=== PATIENT | male | born 1975 | race Hispanic/Latino ===

== ENCOUNTER 2017-08-22 19:12 | Emergency (ER) | payer BC ==
[2017-08-22] MEDS ORDERED: DOXYCYCLINE HYCLATE 100 MG TABLET PO ONE (19:55)
[2017-08-22] MEDS ORDERED: TETANUS/DIPHTHERIA TOXOID [ADULT] 0.5 ML VIAL IM ONE (19:56)
[2017-08-22] MEDS ORDERED: LEVOFLOXACIN 500 MG TABLET ONE (19:56)
[2017-08-22] MEDS ORDERED: IBUPROFEN 600 MG TABLET ONE (19:57)
== END 2017-08-22 20:51 | disposition home or self-care (01) ==
LOC: EDH 19:12
DX: S61.031A Puncture wound without foreign body of right thumb without damage to nail, initial encounter (principal); W26.8XXA Contact with other sharp object(s), not elsewhere classified, initial encounter; Y93.89 Activity, other specified; Y92.89 Other specified places as the place of occurrence of the external cause; Y99.8 Other external cause status
CPT/HCPCS: 73140; 90471; 90714

== ENCOUNTER 2018-07-09 10:45 | Emergency (ER) | payer BC, OTHER ==
[2018-07-09] MEDS ORDERED: DOXYCYCLINE HYCLATE 100 MG TABLET PO ONE (11:40)
== END 2018-07-09 11:46 | disposition home or self-care (01) ==
LOC: EDH 10:45
DX: S70.361A Insect bite (nonvenomous), right thigh, initial encounter (principal); L03.115 Cellulitis of right lower limb; Z87.891 Personal history of nicotine dependence; W57.XXXA Bitten or stung by nonvenomous insect and other nonvenomous arthropods, initial encounter; Y93.89 Activity, other specified; Y92.89 Other specified places as the place of occurrence of the external cause; Y99.8 Other external cause status

== ENCOUNTER 2019-11-13 09:24 | Emergency (ER) | payer OTHER | END 2019-11-13 10:50 | disposition home or self-care (01) | LOC: EDH 09:24 | DX: S70.11XA Contusion of right thigh, initial encounter (principal); S00.93XA Contusion of unspecified part of head, initial encounter; R03.0 Elevated blood-pressure reading, without diagnosis of hypertension; Y08.89XA Assault by other specified means, initial encounter; Y93.89 Activity, other specified; Y92.89 Other specified places as the place of occurrence of the external cause; Y99.8 Other external cause status | CPT/HCPCS: 73552 ==

== ENCOUNTER 2023-11-02 13:56 | Inpatient (IN) | payer BC ==
[~2023-11-02] VITALS: Ht 177.8 cm; Wt 95.3 kg
[2023-11-02 14:17] LABS: BASOPHILS # (AUTO) 0.06 K/uL (0.00-0.20); BASOPHILS % (AUTO) 0.8 % (0.0-5.0); EOSINOPHILS % (AUTO) 3.8 % (0.0-8.0); HEMATOCRIT 45.9 % (42-54); IMMATURE GRANULOCYTE ABSOLUTE 0.04 K/uL (0-1); LYMPHOCYTES # (AUTO) 1.9 K/uL (1.0-4.8); LYMPHOCYTES % (AUTO) 23.6 % (21.0-51.0); MEAN CORPUSCULAR HEMOGLOBIN 28.3 pg (27.0-33.0); MEAN CORPUSCULAR HGB CONC 34.2 g/dL (32.0-36.0); MEAN CORPUSCULAR VOLUME 82.9 fL (79-99); MONOCYTES # (AUTO) 0.7 K/uL (0.1-1.0); NEUTROPHILS # (AUTO) 4.9 K/uL (1.8-7.7); NEUTROPHILS % (AUTO) 62.3 % (40.0-77.0); PLATELET COUNT (AUTO) 250 K/uL (130-400); RED BLOOD CELL COUNT(AUTO) 5.54 MIL/uL (4.50-6.20); RED CELL DISTRIBUTION WIDTH 13.2 % (11.0-15.5); WHITE BLOOD COUNT (AUTO) 7.9 K/uL (4.8-10.8)
[2023-11-02 14:21] LABS: CREATININE 0.9 mg/dL (0.5-1.3); POTASSIUM 3.3 mmol/L (3.5-5.1)
[2023-11-02 14:23] LABS: INR 1.05 (0.85-1.15); PROTHROMBIN TIME 11.3 SEC (9.6-11.6)
[2023-11-02 14:24] LABS: PARTIAL THROMBOPLASTIN TIME 27.6 SEC (26.3-35.5)
[2023-11-02] MEDS: ASPIRIN 81MG CHEW TAB PO ONE (14:37)
[2023-11-02] MEDS: ONDANSETRON 4MG INJ IVP ONE (14:37)
[2023-11-02 14:38] LABS: B-TYPE NATRIURETIC PEPTIDE 14 pg/mL (0-100)
[2023-11-02] MEDS: morPHINE 4 MG SYG IVP ONE (14:39)
[2023-11-02] MEDS: NITROGLYCERIN 0.4 MG SL TAB SL PRN (14:39)
[2023-11-02] MEDS: LORazepam 0.5 MG TABLET PO ONE (17:57)
[2023-11-02] MEDS: PANTOPRAZOLE 40 MG TAB DR PO ONE (17:57)
[2023-11-02] MEDS: HEParin 25,000 UNITS/250ML D5W 250 ML IV PRN (18:07)
[2023-11-02] MEDS: HEParin 5,000 UNIT VIAL IV ONE ×2 (18:15→18:16)
[2023-11-02] MEDS ORDERED: ONDANSETRON 4MG INJ IV PRN (20:00)
[2023-11-02] MEDS ORDERED: NITROGLYCERIN 0.4 MG SL TAB SL PRN (20:00)
[2023-11-02] MEDS ORDERED: MAGNESIUM 2GM PREMIX 50ML 50 ML IV PRN (21:00)
[2023-11-02] MEDS ORDERED: POTASSIUM CHLORIDE 10% ELIXIR 20 MEQ/15 ML UDCUP PO PRN (21:00)
[2023-11-02] MEDS ORDERED: POTASSIUM CHLORIDE 20MEQ/100ML 100 ML IV PRN (21:00)
[2023-11-02 22:35] VITALS: BP 125/71; PULSE 66; RESP 20; TEMP 98
[2023-11-02] MEDS: FAMOTIDINE 20MG VIAL IV SCH (23:07)
[2023-11-02] MEDS: 0.9%NACL 1000ML 1,000 ML IV SCH (23:08)
[2023-11-03 03:53] LABS: BASOPHILS # (AUTO) 0.07 K/uL (0.00-0.20); BASOPHILS % (AUTO) 1.1 % (0.0-5.0); EOSINOPHILS # (AUTO) 0.34 K/uL (0.00-0.70); EOSINOPHILS % (AUTO) 5.1 % (0.0-8.0); HEMATOCRIT 45.1 % (42-54); IMMATURE GRANULOCYTE ABSOLUTE 0.03 K/uL (0-1); LYMPHOCYTES # (AUTO) 2.2 K/uL (1.0-4.8); LYMPHOCYTES % (AUTO) 33.8 % (21.0-51.0); MEAN CORPUSCULAR HEMOGLOBIN 28.4 pg (27.0-33.0); MEAN CORPUSCULAR HGB CONC 33.5 g/dL (32.0-36.0); MEAN CORPUSCULAR VOLUME 84.9 fL (79-99); MONOCYTES # (AUTO) 0.8 K/uL (0.1-1.0); MONOCYTES % (AUTO) 11.9 % (3.0-13.0); NEUTROPHILS # (AUTO) 3.2 K/uL (1.8-7.7); NEUTROPHILS % (AUTO) 47.6 % (40.0-77.0); PLATELET COUNT (AUTO) 239 K/uL (130-400); RED BLOOD CELL COUNT(AUTO) 5.31 MIL/uL (4.50-6.20); RED CELL DISTRIBUTION WIDTH 13.3 % (11.0-15.5); WHITE BLOOD COUNT (AUTO) 6.6 K/uL (4.8-10.8)
[2023-11-03 04:00] VITALS: BP 101/70; PULSE 57; RESP 20; TEMP 97.8
[2023-11-03 04:02] LABS: HEMOGLOBIN A1C 5.1 % (4.0-6.0)
[2023-11-03 04:18] LABS: BILIRUBIN,TOTAL 0.4 mg/dL (0.2-1.0); POTASSIUM 3.8 mmol/L (3.5-5.1); THYROID STIMULATING HORMONE 0.91 uIU/mL (0.36-3.74); TOTAL PROTEIN, SERUM 5.7 g/dL (6.0-8.3)
[2023-11-03] MEDS: acetaMINOPHEN 500 MG TABLET PO PRN (06:18)
[2023-11-03 08:00] VITALS: BP 138/74; PULSE 63; RESP 20; TEMP 98.2
[2023-11-03] MEDS: ASPIRIN 81 MG EC TAB PO SCH (08:37)
[2023-11-03 12:01] VITALS: BP 116/74; PULSE 56; RESP 18; TEMP 98.4
[2023-11-03 16:00] VITALS: BP 144/80; PULSE 68; RESP 18; TEMP 98.8
[2023-11-03 19:00] VITALS: BP 159/89; PULSE 68; RESP 20; TEMP 98.1
[2023-11-03 20:30] VITALS: O2SAT 100
[2023-11-03] MEDS: KCL 20 MEQ ERTAB PO PRN (20:34)
[2023-11-04] VITALS: BP 144/84; PULSE 68; RESP 20; TEMP 98
[2023-11-04 04:00] VITALS: BP 123/73; PULSE 70; RESP 20; TEMP 98.1
[2023-11-04 07:00] VITALS: BP 151/92; PULSE 61; RESP 20; TEMP 98.1
[2023-11-04 08:00] VITALS: O2SAT 100
[2023-11-04] MEDS: REGADENOSON 0.4 MG/5 ML PF SYG IVP SCH (12:53)
[2023-11-04 13:31] VITALS: BP 159/88; PULSE 58; RESP 18; TEMP 98
[2023-11-04 15:00] VITALS: BP 152/90; PULSE 71; RESP 20; TEMP 98.4
[2023-11-04] MEDS ORDERED: AEC81 PO (16:40)
[2023-11-04] MEDS ORDERED: AMLO5TAB4 PO (16:42)
== END 2023-11-04 18:20 | disposition home or self-care (01) | DRG 313 ==
LOC: EDH 13:56 → EDHIP 13:57 → 4AH 22:28
PROVIDERS: ADMIT Internal Medicine; ATTEND Internal Medicine
PROC: 4A02XM4 Measurement of Cardiac Total Activity, External Approach (ICD-10-PCS; principal; 2023-11-04)
DX: R07.89 Other chest pain (principal); E87.6 Hypokalemia; F19.10 Other psychoactive substance abuse, uncomplicated; I10 Essential (primary) hypertension; E66.9 Obesity, unspecified; I25.10 Atherosclerotic heart disease of native coronary artery without angina pectoris; F17.200 Nicotine dependence, unspecified, uncomplicated; F12.10 Cannabis abuse, uncomplicated; F14.10 Cocaine abuse, uncomplicated; Z82.49 Family history of ischemic heart disease and other diseases of the circulatory system
CPT/HCPCS: 36415; 71045; 78452; 80048; 80053; 80061; 82550; 83036; 83735; 83880; 84443; 84484; 85025; 85610; 85651; 85730; 93005; 93017; 93306; 93356; 96374; 96375; A9500; G0378; J1644; J2270; J2405; J2785; J3490

== ENCOUNTER 2025-01-11 06:44 | Inpatient (IN) | payer BC, OTHER ==
[~2025-01-11] VITALS: Ht 188 cm; Wt 118.8 kg
[~2025-01-11 06:44] MED LIST: AEC81 PO; AMLO5TAB4 PO
[2025-01-11 07:08] LABS: IMMATURE GRANULOCYTE ABSOLUTE 0.05 K/uL (0-1); NUCLEATED RED BLOOD CELLS 0.0 % (0.0-0.19); PLATELET COUNT (AUTO) 297 K/uL (130-400); RED BLOOD CELL COUNT(AUTO) 5.51 MIL/uL (4.50-6.20); RED CELL DISTRIBUTION WIDTH 13.2 % (11.0-15.5); WHITE BLOOD COUNT (AUTO) 10.0 K/uL (4.8-10.8)
[2025-01-11 07:12] LABS: APPEARANCE,URINE CLEAR (CLEAR); GLUCOSE, URINE (UA) NEGATIVE (NEGATIVE); LEUKOCYTE ESTERASE ,URINE NEGATIVE Leu/uL (NEGATIVE); NITRATE,URINE NEGATIVE (NEGATIVE); OCCULT BLOOD,URINE NEGATIVE (NEGATIVE)
[2025-01-11 07:21] LABS: ADD UA MICROSCOPIC YES
[2025-01-11] MEDS: ASPIRIN 325MG EC TAB PO ONE (07:23)
[2025-01-11 07:25] LABS: SQUAMOUS EPITHELIAL CELL,UR RARE /HPF (0-2)
--- NOTE | 2025-01-11 07:32 | ERN ---
General Chief Complaint: Chest Pain Stated Complaint: CP Time Seen by MD: 07:17 Source: patient History of Present Illness Initial Comments Patient is a 49-year-old male coming in complaining of chest pain. Patient states that his chest pain presented last night stabbing presentation 5/10 intensity. He states he has not followed up with a aed trainer. He was evaluated a year ago for the similar presentation was told he had an enlarged heart with a leaky valve. Allergies: Uncoded Allergies: nkda (Allergy, Unknown, 07/09/18) Home Meds Active Scripts Amlodipine Besylate (Norvasc 5Mg Tab) 5 Mg Tablet, 5 MG PO DAILY for 30 Days, #30 TAB [facility] Aspirin (ASPIRIN 81 MG ECTAB) 81 Mg Ectab, 81 MG PO DAILY for 30 Days, #30 TAB.EC Prov:[facility] 11/04/23 Past Medical History Past Medical History: Hypertension Past Surgical History: None Family History Family History: CAD Social History Social History: Smokers, Drugs, ETOH ROS Dictation CONSTITUTIONAL: No chills, no fever, no weakness, no diaphoresis, no malaise. HEAD/FACE: No signs of trauma. EENT: No eye pain, no blurred vision, no tearing, no double vision, no ear pain, no ear discharge, no nose pain, no nasal congestion, no throat pain, no throat swelling, no mouth pain. RESPIRATORY: No cough, no orthopnea, no SOB, no stridor, no wheezing. CARDIOVASCULAR: chest pain, no edema, no palpitations, no syncope. GASTROINTESTINAL/ABDOMINAL: No abdominal pain, no constipation, no diarrhea, no nausea, no vomiting. GENITOURINARY: No abnormal discharge, no dysuria, no frequent urination, no hematuria. No complaints of pain in the genitals. MUSCULOSKELETAL: No back pain, no gout, no joint pain, no joint swelling, no muscle pain, no muscle stiffness, no neck pain. INTEGUMENTARY: No change in color, no change in hair/nails, no dryness, no lesion, no lumps, no rash. NEUROLOGICAL/PSYCH: No anxiety, not depressed, no emotional problem, no headache, no numbness, no pre-existing deficit, no history of seizures, no tremors, no weakness. HEMATOLOGIC/LYMPHATIC: Not anemic, no history of blood clots, no apparent bleeding, no bruising, glands not swollen. All Systems Negative, Except as Noted. Physical Exam Physical Exam Dictation VITAL SIGNS: Reviewed. GENERAL APPEARANCE: Alert, oriented x3, no acute distress, obese. HEAD AND FACE: Non-traumatic. EYES: PERRL, pink conjunctivas, eyelid no trauma, anterior chamber clear. EARS: Pinnas intact and no signs of trauma or erythema. Ear canals clear and no discharge. TMs no erythema. NOSE: No discharge, no bleeding. OROPHARYNX: Mouth normal, teeth no caries, tongue pink. Pharynx clear, no eryt lolly. Tonsils no exudates, no abscesses noted. Mucous membrane moist. NECK: Supple, non-tender, no thyromegaly, no masses, no JVD, no bruits. BREAST: Deferred. CHEST: No tenderness, no crepitus, no paradoxical movement, no retractions. LUNGS: Clear, well-ventilated, symmetric, no rales, no wheezing, no rhonchi, no stridor, good breath sounds bilaterally. HEART: Regular rate, regular rhythm, no murmur, no gallops. VASCULAR: No peripheral edema. ABDOMEN: Soft, positive bowel sounds, nondistended, no guarding, nontender, no rebound, no masses no hepatomegaly, no splenomegaly, no Yeager's sign, no hernias. RECTAL: Deferred. GENITAL: Deferred. NEUROLOGICAL: Normal speech, gross motor function intact, gross sensory function intact. MUSCULOSKELETAL: Neck nontender, full range of motion, back nontender, full range of motion. EXTREMITIES: Nontender, full range of motion. SKIN: Color pink, dry, no turgor, no rash, no lacerations, no abrasions, no contusions. LYMPHATICS: Deferred. Results Laboratory and Microbiology Lab and Micro Result Laboratory Tests Test 01/11/25 06:57 01/11/25 07:44 White Blood Count 10.0 K/uL (4.8-10.8) Red Blood Count 5.51 MIL/uL (4.50-6.20) Hemoglobin 15.4 g/dL (14.0-18.0) Hematocrit 45.2 % (42-54) Mean Corpuscular Volume 82.0 fL (79-99) Mean Corpuscular Hemoglobin 27.9 pg (27.0-33.0) Mean Corpuscular Hemoglobin Concent 34.1 g/dL (32.0-36.0) Red Cell Distribution Width 13.2 % (11.0-15.5) Platelet Count 297 K/uL (130-400) Mean Platelet Volume 9.4 fL (7.5-10.5) Immature Granulocyte % (Auto) 0.5 % (0-1) Neutrophils (%) (Auto) 75.7 % (40.0-77.0) Lymphocytes (%) (Auto) 13.0 % (21.0-51.0) L Monocytes (%) (Auto) 9.2 % (3.0-13.0) Eosinophils (%) (Auto) 0.8 % (0.0-8.0) Basophils (%) (Auto) 0.8 % (0.0-5.0) Neutrophils # (Auto) 7.5 K/uL (1.8-7.7) Lymphocytes # (Auto) 1.3 K/uL (1.0-4.8) Monocytes # (Auto) 0.9 K/uL (0.1-1.0) Eosinophils # (Auto) 0.08 K/uL (0.00-0.70) Basophils # (Auto) 0.08 K/uL (0.00-0.20) Absolute Immature Granulocyte (auto 0.05 K/uL (0-1) Nucleated Red Blood Cells 0.0 % (0.0-0.19) Urine Color YELLOW (YELLOW) Urine Appearance CLEAR (CLEAR) Urine pH 5.5 (5.0-8.0) Urine Specific [place] 1.039 (1.001-1.031) Urine Protein 30 mg/dL (NEGATIVE) H Urine Glucose (UA) NEGATIVE mg/dL (NEGATIVE) Urine Ketones 10 mg/dL (NEGATIVE) H Urine Occult Blood NEGATIVE (NEGATIVE) Urine Nitrate NEGATIVE (NEGATIVE) Urine Bilirubin NEGATIVE mg/dL (NEGATIVE) Urine Urobilinogen 2.0 mg/dL (0.2-1.0) H Urine Leukocyte Esterase NEGATIVE Vane/uL Urine RBC 2-5 /HPF (0-1) H Urine WBC 2-5 /HPF (0-1) H Urine Squamous Epithelial Cells RARE /HPF (0-2) Urine Bacteria None /HPF (None Seen) Sodium Level 137 mmol/L (136-145) Potassium Level 3.5 mmol/L (3.5-5.1) Chloride Level 101 mmol/L (101-111) Carbon Dioxide Level 24 mmol/L (21-32) Blood Urea Nitrogen 15 mg/dL (7-18) Creatinine 0.9 mg/dL (0.5-1.3) Glomerular Filtration Rate Calc 105 mL/min (>90) Random Glucose 126 mg/dL (70-105) H Total Calcium 9.5 mg/dL (8.5-10.1) Total Creatine Kinase 496 U/L (21-232) #*H Troponin I High Sensitivity 13 ng/L (4-75) 12 ng/L (4-75) Urine Opiates Screen NEGATIVE (NEGATIVE) Urine Barbiturates Screen NEGATIVE (NEGATIVE) Urine Phencyclidine Screen NEGATIVE (NEGATIVE) Urine Amphetamines Screen NEGATIVE (NEGATIVE) Urine Benzodiazepines Screen NEGATIVE (NEGATIVE) Urine Cocaine Screen POSITIVE (NEGATIVE) H Urine Marijuana (THC) Screen POSITIVE (NEGATIVE) H Labs Reviewed?: Yes EKG/XRAY/US/CT/MRI EKG Comment 01/11/2025 time 6:39 a.m. Ventricular rate 104 Sinus tachycardia [place] [address] wave elevation or depression MDM MDM: Differential diagnosis: Chest pain, cocaine abuse, history of valvular disease, history of enlarged heart, Rationale: Tests considered and ordered secondary to shared decision making include: labs, ECG and radiology Previous outside records reviewed: Old ER visits. Risk of complication and/or morbidity or mortality of patient management: None Medications-Per medication reconciliation Need for hospitalization: Patient does meet criteria for hospitalization. Need for emergency major/minor surgery: No There are no social concerns with this patient. Prescription drug management Prescriptions will include symptomatic care Patient's prior external medical records from other ER visits were reviewed by me as indicated. Prior testing and results from previous visits were reviewed. Prior tests were taken into account with medical decision making and resource utilization, independent historian/historians were used to obtain complete medical history. I independently interpreted the test that were performed, results were reviewed by me and considered findings on radiology if ordered. Medical management and examination interpretation discussions were had by me with other qualified healthcare professionals as indicated for the patient's care. ED Course Orders Procedure Category Date Status Time Vital Signs Per CPOE 01/11/25 Transmitted Routine 06:46 Chest 1vw RAD 11/17/25 Resulted 06:46 12 Lead Ekg Tracing- EKG 01/11/25 Complete Technical 06:46 Oxygen By Nc/Pulse Ox CPOE 01/11/25 Transmitted 06:46 Maintain Iv CPOE 01/11/25 Transmitted 06:46 Iv Insertion CPOE 01/11/25 Transmitted 06:46 Cardiac Monitoring CPOE 01/11/25 Transmitted 06:46 Pulse Oximetry With CPOE 01/11/25 Transmitted Vs And Prn 06:46 Cbc With Differential LAB 01/11/25 Complete 06:46 Activity: Br W/Brp CPOE 01/11/25 Transmitted With Assist 06:46 Creatine Kinase, Total LAB 01/11/25 Complete 06:46 Troponin I High LAB 01/11/25 Complete Sensitivity 06:46 Urinalysis Profile LAB 01/11/25 Complete 06:46 Basic Metabolic Panel LAB 01/11/25 Complete 06:46 Aspirin 325mg Ec Tab PHA 01/11/25 Complete (Aspirin 325mg Ec T 07:00 Hydralazine 20mg Inj PHA 01/11/25 Complete (Apresoline 20mg In 07:00 Nitroglycerin 1gm PHA 01/11/25 Complete Oint (Nitroglycerin 1g 07:30 Troponin I High LAB 01/11/25 Complete Sensitivity 07:29 Drug Screen Urine LAB 01/11/25 Complete 07:34 Clonidine Hcl 0.1 Mg PHA 01/11/25 Complete Tablet (Catapres 0. 09:00 Lidocaine Hcl 2% PHA 01/11/25 Complete Viscous (Lidocaine Hcl 09:00 Mag/Alum/Simeth 30ml PHA 01/11/25 Complete (Maalox Plus 30ml) 09:00 Current Medications Medications (Trade) Dose Ordered Sig/Abdirizak Route PRN Reason Start Time Stop Time Status Last Admin Dose Admin Al Hydroxide/Mg Hydroxide (MAALox PLUS 30ML) 30 ml ONCE ONCE PO 01/11/25 09:00 01/11/25 09:01 DC 01/11/25 08:49 Aspirin (Aspirin 325mg Ec Tab) 325 mg ONCE ONCE PO 01/11/25 07:00 01/11/25 07:03 DC 01/11/25 07:23 Clonidine HCl (CATApres 0.1 mg TAB) 0.1 mg ONCE ONCE PO 01/11/25 09:00 01/11/25 09:01 DC 01/11/25 08:49 Hydralazine HCl (APRESOLine 20MG INJ) 5 mg ONCE ONCE IV 01/11/25 07:00 01/11/25 07:03 DC Lidocaine HCl (Lidocaine HCl 2% Viscous) 10 ml ONCE ONCE PO 01/11/25 09:00 01/11/25 09:01 DC 01/11/25 08:49 Nitroglycerin (Nitroglycerin 1gm Oint) 1 inch ONCE ONCE TD 01/11/25 07:30 01/11/25 07:31 DC 01/11/25 07:35 Vital Signs Date Time Temp Pulse Resp B/P (MAP) Pulse Ox O2 Delivery O2 Flow Rate FiO2 01/11/25 08:55 98.2 87 16 147/88 95 Room Air* 0 01/11/25 08:49 89 147/88 01/11/25 07:23 98.2 95 18 159/98 96 Room Air* 0 01/11/25 06:53 98.2 110 18 164/125 97 Room Air* 0 01/11/25 06:47 98.1 112 18 172/122 99 Room Air DX & DISP Disposition: Inpatient Decision to Admit Time: 09:04 Departure Impression: Primary Impression: Cocaine abuse Additional Impressions: Chest pain, Hypertension Condition: Stable Referrals: SELF,REFERRAL (PCP) JASMIN BARROSO MD Jan 11, 2025 07:32
[2025-01-11] MEDS: NITROGLYCERIN 1GM OINT 1 INCH/1GM TD ONE (07:35)
--- NOTE | 2025-01-11 07:41 | HMCIMG ---
EXAM: CR Chest, single view. CLINICAL HISTORY: Chest pain. COMPARISON: None. FINDINGS: The lungs show no infiltrate or other acute findings. No pleural effusion or pneumothorax. The cardiomediastinal silhouette is within normal limits. No acute osseous abnormality. IMPRESSION: No acute cardiopulmonary pathology is evident. /Millry
[2025-01-11 07:43] LABS: CREATININE 0.9 mg/dL (0.5-1.3); GLOMERULAR FILTR. RATE CALC 105.0 mL/min (>90); GLUCOSE,RANDOM 126.0 mg/dL (70-105); SODIUM SERUM 137.0 mmol/L (136-145); UREA NITROGEN, BLOOD 15.0 mg/dL (7-18)
--- NOTE | 2025-01-11 07:45 | EKG ---
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
[2025-01-11 07:47] LABS: CREATINE KINASE, TOTAL 496.0 U/L (21-232)
[2025-01-11 08:25] LABS: AMPHET/METH SCREEN,URINE NEGATIVE (NEGATIVE); BARBITURATE SCREEN, URINE NEGATIVE (NEGATIVE); CANNABINOID SCREEN,URINE POSITIVE (NEGATIVE); COCAINE SCREEN,URINE POSITIVE (NEGATIVE)
[2025-01-11] MEDS: MAG/ALUM/SIMETH 30 ML UDCUP PO ONE (08:49)
[2025-01-11] MEDS: LIDOCAINE HCL 2% VISCOUS 15 ML UDCUP PO ONE (08:49)
--- NOTE | 2025-01-11 10:57 | HP ---
[facility] HISTORY AND PHYSICAL Date of Service: Jan 11, 2025 Time of Service: 10:49 PCP: Does not have one Admitting: Dr Liu Allergies: nkda HISTORY OF PRESENT ILLNESS: [ Patient is 49 years old male with a past medical history of Coronary Artery Disease and hypertension who came to emergency department with a complaint of pain chest. Patient stated that since today morning around five 6:00 a.m. patient started feel anxiety and chest pain pointing in the middle of his chest. Patient stated that he had a huge discomfort and felt like something was sitting on his chest was a constant pain. He had something like that before about a year ago and he was admitted to [facility] you where he underwent a stress test and was sent home. Patient denies taking any medications at home Most recent vital signs temperature 98.2 pulse 84 respirations 16 blood pressur e 107/68 patient is on room air satting 95%. Drug test was positive for cocaine and marijuana. Urinalysis negative. Sodium 137 potassium 3.5 CO2 24 BUN 15 creatinine 0.9 glucose 126 GFR 105 CK 496 troponins negative x2. WBC 10 hemoglobin 15.4 hematocrit 45.2 platelets 297. Chest x-ray negative. Patient will be admitted under hospitalist care for further evaluation/recommendation. Tariff Counsel was consulted. A.m. labs] REVIEW OF SYSTEMS CONSTITUTIONAL: Denies fevers, chills, or night sweats. No unintentional weight loss reported. NEUROLOGICAL: Denies headache, amaurosis fugax, motor weakness, sensory deficit, vertigo/spinning sensation, gait abnormalities, or tremors. ENT: No hearing loss, otalgia, otorrhea, rhinitis, rhinorrhea, hoarseness, or sore throat. CARDIOVASCULAR: Denies any, dyspnea on exertion, orthopnea, paroxysmal nocturnal dyspnea, palpitations, life-threatening arrhythmias, claudication. Complains of chest pain/pressure PULMONARY: Denies any shortness of breath, cough, phlegm/sputum, hemoptysis, pleuritic chest pain. SLEEP: Denies morning headaches, daytime somnolence or napping. Denies difficulty falling asleep, staying asleep, waking from sleep. Denies knowledge of snoring. GASTROINTESTINAL: Denies any type of dysphagia to either liquids or solids. Denies nausea, vomiting, pyrosis, early satiety, abdominal pain, diarrhea, constipation, or changes in stool consistency or caliber. Denies coffee-ground emesis, hematemesis, hematochezia, or melanotic stools. GENITOURINARY: Denies frequency, urgency, nocturia, hematuria or incontinence (Storage/Irritative symptoms.) Low urinary stream, straining to void, urinary intermittency or hesitancy, splitting of the voiding stream, terminal dribbling. ENDOCRINOLOGIC: Denies polyuria, polydipsia, polyphagia or heat/cold intolerances. HEMATOLOGIC: Denies thrombophilia/previous clots, or coagulopathy/bleeding disorders. ONCOLOGIC: Denies personal history of malignancy. DERMATOLOGIC: Denies rashes or pruritus. PSYCHIATRIC: Denies any suicidal or homicidal ideation. Denies hallucinations. PAST MEDICAL HISTORY: [ Hypertension, Coronary Artery Disease ] PAST SURGICAL HISTORY: [ Denies any ] PAST SOCIAL HISTORY: [ Patient stated that he smokes one pack of cigarettes every 2 to 3 days. Patient drinks occasionally. Patient admitted to take cocaine and smoking weight occasionally ] FAMILY HISTORY: [ Home with family. Patient independent ] Uncoded Allergies: nkda (Allergy, Unknown, 07/09/18) PHYSICAL EXAM GENERAL APPEARANCE: The patient is awake, alert, and oriented, in no acute cardiopulmonary distress. NEUROLOGICAL: Cranial nerves II-XII grossly intact. Motor is 5/5 in bilateral upper and lower extremities proximal to distal. No sensory deficits. HEENT: Face is symmetric. Pupils are equal and reactive. Extraocular movements are intact. NECK: Supple. No JVD. No thyromegaly. No submental, submandibular, pre- /postauricular, occipital or supraclavicular lymphadenopathy. CHEST: Normal chest expansion. No Telemetry. LUNGS: Absence of any rales, rhonchi or any wheezing. CARDIOVASCULAR: Regular. S1 and S2 normal. No appreciable rubs, murmurs or gallops. ABDOMEN: Soft, nontender, and nondistended. There is no rebound, voluntary guarding, or rigidity. : Deferred. No Jonas. EXTREMITIES: Non-edematous and not cyanotic. No clubbing. Good capillary refill. SKIN: No skin breakdown. Vital Sign (Last 24 Hours) 01/11/25 09:56 Temp 98.2 Pulse 84 Resp 16 B/P (MAP) 107/68 Pulse Ox 95 O2 Delivery Room Air* O2 Flow Rate 0 FiO2 21 LABS: Laboratory: Test 01/11/25 07:44 01/11/25 06:57 Range/Units Troponin I High Sensitivity 12 4-75 ng/L White Blood Count 10.0 4.8-10.8 K/uL Red Blood Count 5.51 4.50-6.20 MIL/uL Hemoglobin 15.4 14.0-18.0 g/dL Hematocrit 45.2 42-54 % Mean Corpuscular Volume 82.0 79-99 fL Mean Corpuscular Hemoglobin 27.9 27.0-33.0 pg Mean Corpuscular Hemoglobin Concent 34.1 32.0-36.0 g/dL Red Cell Distribution Width 13.2 11.0-15.5 % Platelet Count 297 130-400 K/uL Mean Platelet Volume 9.4 7.5-10.5 fL Immature Granulocyte % (Auto) 0.5 0-1 % Neutrophils (%) (Auto) 75.7 40.0-77.0 % Lymphocytes (%) (Auto) 13.0 L 21.0-51.0 % Monocytes (%) (Auto) 9.2 3.0-13.0 % Eosinophils (%) (Auto) 0.8 0.0-8.0 % Basophils (%) (Auto) 0.8 0.0-5.0 % Neutrophils # (Auto) 7.5 1.8-7.7 K/uL Lymphocytes # (Auto) 1.3 1.0-4.8 K/uL Monocytes # (Auto) 0.9 0.1-1.0 K/uL Eosinophils # (Auto) 0.08 0.00-0.70 K/uL Basophils # (Auto) 0.08 0.00-0.20 K/uL Absolute Immature Granulocyte (auto 0.05 0-1 K/uL Nucleated Red Blood Cells 0.0 0.0-0.19 % Urine Color YELLOW YELLOW Urine Appearance CLEAR CLEAR Urine pH 5.5 5.0-8.0 Urine Specific [place] 1.039 H 1.001-1.031 Urine Protein 30 H NEGATIVE mg/dL Urine Glucose (UA) NEGATIVE NEGATIVE mg/dL Urine Ketones 10 H NEGATIVE mg/dL Urine Occult Blood NEGATIVE NEGATIVE Urine Nitrate NEGATIVE NEGATIVE Urine Bilirubin NEGATIVE NEGATIVE mg/dL Urine Urobilinogen 2.0 H 0.2-1.0 mg/dL Urine Leukocyte Esterase NEGATIVE NEGATIVE Vane/uL Urine RBC 2-5 H 0-1 /HPF Urine WBC 2-5 H 0-1 /HPF Urine Squamous Epithelial Cells RARE 0-2 /HPF Urine Bacteria None None Seen /HPF Sodium Level 137 136-145 mmol/L Potassium Level 3.5 3.5-5.1 mmol/L Chloride Level 101 101-111 mmol/L Carbon Dioxide Level 24 21-32 mmol/L Blood Urea Nitrogen 15 7-18 mg/dL Creatinine 0.9 0.5-1.3 mg/dL Glomerular Filtration Rate Calc 105 >90 mL/min Random Glucose 126 H 70-105 mg/dL Total Calcium 9.5 8.5-10.1 mg/dL Total Creatine Kinase 496 #*H 21-232 U/L Urine Opiates Screen NEGATIVE NEGATIVE Urine Barbiturates Screen NEGATIVE NEGATIVE Urine Phencyclidine Screen NEGATIVE NEGATIVE Urine Amphetamines Screen NEGATIVE NEGATIVE Urine Benzodiazepines Screen NEGATIVE NEGATIVE Urine Cocaine Screen POSITIVE H NEGATIVE Urine Marijuana (THC) Screen POSITIVE H NEGATIVE Current Medications Medications (Trade) Dose Ordered Sig/Abdirizak Route PRN Reason Start Time Stop Time Status Last Admin Dose Admin Dextrose (D50w) 50 ml AD PRN IV HYPOGLYCEMIA PROTOCOL 01/11/25 11:00 02/10/25 10:59 Glucagon (Glucagon 1mg Kit) 1 mg AD PRN IM HYPOGLYCEMIA PROTOCOL 01/11/25 11:00 02/10/25 10:59 Insulin Human Regular (humuLIN R 100 UNIT/ML 3ML) INSULIN SLIDING SCAL... ACHS SQ 01/11/25 11:30 02/10/25 11:29 Magnesium Sulfate 50 ml @ 0 mls/hr PROTOCOL PRN IV other 01/11/25 11:00 02/10/25 10:59 UNV Potassium Chloride 100 ml @ 100 mls/hr AD PRN IV POTASSIUM PROTOCOL 01/11/25 11:00 02/10/25 10:59 Potassium Chloride (K-Dur/Klor-Con 20meq) 20 meq AD PRN PO POTASSIUM PROTOCOL 01/11/25 11:00 02/10/25 10:59 UNV Potassium Chloride (KCl 10% Elixir 20meq/15ml) 20 meq AD PRN PO POTASSIUM PROTOCOL 01/11/25 11:00 02/10/25 10:59 DIAGNOSTICS / RADIOLOGY: [ ] ASSESSMENT: [ Atypical chest pain POA Rhabdomyolysis POA Anxiety POA Toxicology positive for cocaine and marijuana POA Uncontrolled hypertension POA Coronary Artery Disease POA Smoker POA Occasional alcohol drinker POA ] PLAN: [ Patient will be admitted under hospitalist care to medical-surgical floor with telemetry Normal saline at 50 mL/hour for rhabdomyolysis Consult lock stitch channeler for chest pain Troponins negative x2 Chest x-ray negative 2D echo pending Hyper and hypoglycemia protocol Hypomagnesemia protocol Hypokalemia protocol Case management consulted for disposition PT consulted for evaluation I's and o's strict Daily weights Blood culture pending PRN medications inserted Heparin prophylaxis 5000 units subQ b.i.d. Urinalysis pending A.m. labs Cardiac diet ] ADVANCED CARE PLANNING 1. Which of the following were discussed? Hospice Care - Yes / No Therapeutic options - Yes / No Advance Directives - Yes / No Other discussions - 2. Discussed with who? Patient 3. Voluntary nature of this service was explained to the patient? Yes / No 4. Amount of time spent - __ 35 minutes 5. Reviewed by Physician? (if this service was performed by NPP) Yes / No JORGE HASSAN DAILY RELEASE AND DUPE PRINTER Jan 11, 2025 10:57
[2025-01-11] MEDS ORDERED: GLUCAGON 1MG KIT 1 MG ML IM PRN (11:00)
[2025-01-11] MEDS ORDERED: FAMOTIDINE 20MG VIAL IV PRN (11:00)
[2025-01-11] MEDS ORDERED: PoTASSium chloRIDE 20MEQ ER 20 MEQ ERTAB PO PRN (11:00)
[2025-01-11] MEDS ORDERED: MAGNESIUM 2GM PREMIX 50ML 50 ML IV PRN (11:00)
[2025-01-11] MEDS ORDERED: MAG/ALUM/SIMETH 30 ML UDCUP PO PRN (11:00)
[2025-01-11] MEDS ORDERED: DEXTROSE 50%-WATER 50 ML DISP.SYRIN IV PRN (11:00)
[2025-01-11] MEDS ORDERED: LACTULOSE 20 GM/30 ML UDCUP PO PRN (11:00)
[2025-01-11] MEDS ORDERED: NITROGLYCERIN 0.4 MG SL TAB SL PRN (11:00)
[2025-01-11] MEDS ORDERED: PoTASSium chl 10% ELIXIR 20MEQ 20 MEQ/15 ML UDCUP PO PRN (11:00)
[2025-01-11] MEDS: 0.9%NACL 1000ML 1,000 ML IV SCH (11:50)
[2025-01-11] MEDS: PoTASSium chloRIDE 20MEQ ER 20 MEQ ERTAB PO ONE (11:51)
[2025-01-11 12:51] LABS: COVID19 (SARS ANTIGEN RAPID) PRESUMPTIVE NEGATIVE (NEGATIVE); INFLUENZA TYPE A Negative For Type A (NEGATIVE); INFLUENZA TYPE B Negative For Type B (NEGATIVE)
--- NOTE | 2025-01-11 13:04 | NUR ---
FIRST ATTEMPT AT CALLING REPORT
--- NOTE | 2025-01-11 13:30 | NUR ---
PENDING CARDIOLOGY CONSULT WITH ADMITTING DX OF CHEST PAIN.
--- NOTE | 2025-01-11 13:46 | NUR ---
received er aox4 ivf's patent denies cp stable cond
[2025-01-11 14:26] VITALS: BP 167/98; PULSE 66; RESP 18; TEMP 97.7
[2025-01-11 14:45] VITALS: O2SAT 98
[2025-01-11 16:00] VITALS: BP 129/75; PULSE 64; RESP 18; TEMP 98
[2025-01-11 20:00] VITALS: BP 129/81; PULSE 56; RESP 18; TEMP 98; O2SAT 97
[2025-01-11] MEDS: FAMOTIDINE 20MG VIAL IV SCH (21:27)
[2025-01-12] VITALS: BP 138/78; PULSE 61; RESP 20; TEMP 98.1
[2025-01-12 03:54] LABS: IMMATURE GRANULOCYTE ABSOLUTE 0.03 K/uL (0-1); NUCLEATED RED BLOOD CELLS 0.0 % (0.0-0.19); PLATELET COUNT (AUTO) 250 K/uL (130-400); RED BLOOD CELL COUNT(AUTO) 5.26 MIL/uL (4.50-6.20); RED CELL DISTRIBUTION WIDTH 13.2 % (11.0-15.5); WHITE BLOOD COUNT (AUTO) 6.2 K/uL (4.8-10.8)
[2025-01-12 04:00] VITALS: BP 142/70; PULSE 53; RESP 18; TEMP 98.1
[2025-01-12 04:14] LABS: ASPARTATE AMINOTRANSFERASE 20.0 U/L (10-37); CREATINE KINASE, TOTAL 241.0 U/L (21-232); CREATININE 1.0 mg/dL (0.5-1.3); GLOMERULAR FILTR. RATE CALC 92.0 mL/min (>90); GLUCOSE,RANDOM 92.0 mg/dL (70-105); SODIUM SERUM 141.0 mmol/L (136-145); TOTAL PROTEIN, SERUM 6.6 g/dL (6.0-8.3); UREA NITROGEN, BLOOD 15.0 mg/dL (7-18)
[2025-01-12 07:00] VITALS: O2SAT 98
[2025-01-12 08:00] VITALS: BP 138/87; PULSE 74; RESP 18; TEMP 98.3
[2025-01-12] MEDS: NICOTINE 14 MG/ 24 HR PATCH TD SCH (09:47)
[2025-01-12] MEDS: guaiFENesin-DM 200/20MG 10ML PO PRN (11:12)
[2025-01-12 11:59] VITALS: BP 149/91; PULSE 59; RESP 19; TEMP 97.9
--- NOTE | 2025-01-12 13:37 | NUR ---
PT INSISTING OM LEAVING AMA EDUCATED IN DX PROCESS VERBAL UNDERSTANDING SL REMOVED DRESSING TO REMOVAL SITE IVETTE WELL EDUCATED AND WELCOME TO RETURN IF CP PERSIST AWARE COND STABLE LEFT UNIT JHON PPERSONNAL VECHILE IN FRONT OF HOSPITAL GABRIELLE MUELLER SIGNED
--- NOTE | 2025-01-12 19:10 | HMCSR ---
APPROVED REPORT EXAM: Two-dimensional and M-mode echocardiogram with Doppler and color Doppler. INDICATION ICD: Congestive heart failure 2D Dimensions RVDd 3.4 cm LVEF(%) 64.3 (>50%) LVED Vol(simp.) 80.0 mL IVSd 1.3 (0.7-1.1cm) FS(%) 35 % LVES Vol(simp.) 28.0 mL LVDd 5.0 (3.8-5.6cm) LA (2D) 4.9 (1.6-4.0cm) LVEF(%, simp.) 66 % PWd 1.1 (0.7-1.1cm) Ao Root(2D) 4.0 (2.0-3.7cm) LA ESV INDEX (BP) 51.78 mL/m2 IVSs 1.4 cm LVOT diam 2.4 (1.8-2.4cm) LVDs 3.2 (2.5-4.0cm) PWs 2.1 cm Deformation Strain Apical 4 -17.1 % Apical 2 -19.4 % Apical 3 -15.6 % Global Strain -17.4 % M-Mode Dimensions EPSS 0.8 cm LA (MM) 4.5 (1.6-4.0cm) Ao Root(MM) 3.5 (2.0-3.7cm) Aortic Valve AoV Vmax 1.2 m/s Ao Peak GR 6.2 mmHg LVOT Vmax 1.0 m/s AoV VTI 0.2 m Ao Mean GR 3.7 mmHg LVOT VTI 0.21 m MINOR (VMAX) 3.64 cm2 MINOR (VTI) 4.2 cm2 Mitral Valve MV E Vmax 73.3 cm/s DECEL Time 204 ms MV A Vmax 52.5 cm/s P 1/2 T 57 ms E/A ratio 1.4 MVA (PHT) 3.8 cm2 TDI E/E' Medial 8.1 E/E' Lateral 8.2 Medial E' Peak V 9.05 cm/s Lateral E' Peak V 8.89 cm/s Pulmonary Valve PV Vmax 0.9 m/s PI End Lucy. Rober 110.9 cm/s PV Mean GR 2.1 mmHg PV Peak GR 3.3 mmHg Tricuspid Valve TR Vmax 1.1 m/s RAP (EST) 3 mmHg RVSP 7.9 mmHg TR Peak GR 4.9 mmHg Left Ventricle The left ventricle is normal size. GLS -17.0% There is normal LV segmental wall motion. There is mild left ventricular wall thickness. The LVEF is > 65%. The left ventricular diastolic function is normal. Right Ventricle The right ventricle is normal size. The right ventricular systolic function is normal. Atria The left atrium is severely dilated. LASVI 51mL/m The right atrium size is normal. Aortic Valve The aortic valve is trileaflet normal in structure. No aortic regurgitation is present. There is no aortic valvular stenosis. Mitral Valve The mitral valve is normal in structure. There is trace of mitral valve regurgitation noted. There is no mitral valve stenosis. Tricuspid Valve The tricuspid valve is normal in structure. There is trace tricuspid valve regurgitation noted. Pulmonic Valve Pulmonic valve is not well visualized. There is trace of pulmonic valvular regurgitation. Great Vessels The aortic root is normal in size. The IVC is normal in size and collapses >50% with inspiration. Pericardium There is no pericardial effusion. Other Information Quality : Adequate Conclusion The left ventricle is normal size. The LVEF is > 65% with normal LV segmental wall motion. The left ventricular diastolic function is normal. The right ventricular systolic function is normal. The left atrium is severely dilated. LASVI 51mL/m No hemodynamically significant valvular abnormalities. There is no pericardial effusion.
== END 2025-01-12 13:40 | disposition left against medical advice (07) | DRG 313 ==
LOC: EDH 06:44 → EDHIP 10:43 → 4AH 13:45
PROVIDERS: ADMIT Hospitalist; ATTEND Hospitalist
DX: R07.89 Other chest pain (principal); I25.10 Atherosclerotic heart disease of native coronary artery without angina pectoris; M62.82 Rhabdomyolysis; I11.9 Hypertensive heart disease without heart failure; F14.10 Cocaine abuse, uncomplicated; F41.9 Anxiety disorder, unspecified; F17.210 Nicotine dependence, cigarettes, uncomplicated; Z82.49 Family history of ischemic heart disease and other diseases of the circulatory system
CPT/HCPCS: 36415; 71045; 80048; 80076; 80305; 81001; 82140; 82150; 82550; 82948; 83036; 83605; 83690; 83735; 84145; 84439; 84443; 84481; 84484; 85025; 87426; 87804; 93005; 93306; 93356; 96374; 99285; G0378; J0360; J1644; J7030; J1308